=== PATIENT | male | born 1970 | race Caucasian/White ===

== ENCOUNTER 2017-04-20 11:44 | Inpatient (IN) | payer BC, OTHER ==
[~2017-04-20] VITALS: Ht 177.8 cm; Wt 70.3 kg
[2017-04-20] MEDS ORDERED: SODIUM CHLORIDE 0.9% 1,000 ML IVB ONE (12:24)
[2017-04-20] MEDS ORDERED: DILTIAZEM 125mg/125ml BAG KIT 100 ML IV ONE (12:24)
[2017-04-20] MEDS ORDERED: ASPirin 81 mg TAB PO ONE (12:30)
[2017-04-20] MEDS ORDERED: DILTIAZEM HCL 25 MG/5 ML VIAL IV ONE (12:30)
[2017-04-20 13:05] LABS: Basophils # (auto) 0 uL; Basophils % (auto) 0.3 % (0.0-2.0); Eosinophils # (auto) 0 uL; Eosinophils % (auto) 0.4 % (0.0-7.0); Hematocrit 48.2 % (41.0-53.0); Hemoglobin 16.2 g/dL (13.5-17.5); Lymphocytes # (auto) 0.7 uL; Lymphocytes % (auto) 6.4 % (10.0-50.0); Mean Corpuscular Hemoglobin 31.9 pg (28.0-32.0); Mean Corpuscular Hgb Conc. 33.6 g/dL (32.0-36.0); Mean Corpuscular Volume 95.1 fL (80.0-100.0); Monocytes # (auto) 0.4 uL; Monocytes % (auto) 3.8 % (0.0-12.0); Neutrophils # (auto) 9.1 uL; Neutrophils % (auto) 89.1 % (37.0-80.0); Nucleated Red Blood Cells % 0.1 %; Platelet Count (auto) 218 10^3/uL (140-450); Red Blood Cells 5.07 10^6/uL (4.5-5.90); Red Cell Distribution Width 13.2 % (11.8-14.3); White Blood Cell 10.3 10^3/uL (4.4-10.8)
[2017-04-20 13:23] LABS: Albumin 3.9 g/dL (3.4-5.0); Anion Gap 8 (5-15); Blood Urea Nitrogen 14 mg/dL (7-18); Calcium 8.7 mg/dL (8.5-10.1); Carbon Dioxide 23 mmol/L (21-32); Chloride 107 mmol/L (98-107); Glucose 101 mg/dL (74-106); Magnesium 2.2 mg/dL (1.6-2.6); Potassium 3.8 mmol/L (3.5-5.1); Sodium 138 mmol/L (136-145)
[2017-04-20 13:25] LABS: Alanine Aminotransferase 25 U/L (16-61); Aspartate Aminotransferase 15 U/L (15-37); BUN/Creatinine Ratio 14.4; GFR African American 106 mL/min; GFR Non-African American 88 mL/min
[2017-04-20 13:30] LABS: Alkaline Phosphatase 76 U/L (45-117); Bilirubin, Total 0.8 mg/dL (0.2-1.0); Total Protein 7.3 g/dL (6.4-8.2)
[2017-04-20] MEDS ORDERED: AMIODARONE HCL 150 MG in D5W 5% 100 ML IV ONE (14:00)
[2017-04-20] MEDS ORDERED: DIGOXIN (250MCG/ML) 2 ML AMPULE IV ONE (14:00)
[2017-04-20] MEDS ORDERED: ENOXAPARIN SOD 80 MG/0.8ML SYRINGE SC ONE (14:00)
[2017-04-20] MEDS ORDERED: AMIODARONE HCL 900 MG in DEXTROSE 500 ML IV SCH (14:08)
[2017-04-20] MEDS ORDERED: PROMETHAZINE HCL 25 MG/ML 1ML IV PRN (14:30)
[2017-04-20] MEDS ORDERED: MORPHINE SULFATE 4 MG/ML SYR/VIAL IV PRN ×2 (14:30)
[2017-04-20] MEDS ORDERED: ACETAMINOPHEN 500 MG TAB PO PRN (14:30)
[2017-04-20] MEDS ORDERED: TEMAZEPAM 15 MG CAP PO PRN (14:30)
[2017-04-20] MEDS ORDERED: LORazepam 0.5 MG TAB PO PRN (14:30)
[2017-04-20] MEDS ORDERED: HYDROcodone-ACET 5/325MG TAB PO PRN (14:30)
[2017-04-20] MEDS ORDERED: LACTULOSE 20Gm/30ML SOLN PO PRN (14:30)
[2017-04-20] MEDS ORDERED: NITROGLYCERIN 0.4 MG SL TAB SL PRN (14:30)
[2017-04-20 14:59] LABS: INR 0.98 (0.9-1.15); Partial Thromboplastin Time 25.5 sec (22.64-33.71); Prothrombin Time 10.7 sec (9.37-12.3)
[2017-04-20 15:00] LABS: Alcohol, Urine < 3.0 mg/dL (0-5); Amphetamine Screen, Urine NEGATIVE (NEGATIVE); Barbiturate Scree,Urine NEGATIVE (NEGATIVE); Benzodiazephine Screen, Urine NEGATIVE (NEGATIVE); Cannabinoid Screen, Urine POSITIVE (NEGATIVE); Cocaine Screen, Urine NEGATIVE (NEGATIVE); Opiate Scree,Urine NEGATIVE (NEGATIVE); Phencyclidine Screen, Urine NEGATIVE (NEGATIVE)
[2017-04-20 15:01] LABS: Urine Bacteria NONE SEEN /hpf (None Seen); Urine Blood Negative /uL (Negative); Urine WBC 1 /hpf (0 - 3)
[2017-04-20] MEDS: ENOXAPARIN SOD 80 MG/0.8ML SYRINGE SC SCH (22:31)
[2017-04-21 06:51] LABS: Cholesterol 146 mg/dL (< 200); HDL Cholesterol 60 mg/dL (40-59); LDL Cholesterol 83 mg/dL (< 100); Triglycerides 78 mg/dL (< 150)
[2017-04-21] MEDS: PANTOPRAZOLE 40 MG TAB PO SCH (10:47)
[2017-04-21] MEDS: ENOXAPARIN SOD 80 MG/0.8ML SYRINGE SC SCH ×2 (10:47→22:15)
[2017-04-21] MEDS: ASPirin 81 mg TAB PO SCH (10:47)
[2017-04-21] MEDS ORDERED: DILTIAZEM 125mg/125ml BAG KIT 125 ML IV SCH (13:30)
[2017-04-21] MEDS ORDERED: DILTIAZEM HCL 25 MG/5 ML VIAL IV ONE (15:45)
[2017-04-21] MEDS ORDERED: ALPRAZolam 0.25 MG TAB PO ONE (16:00)
[2017-04-22] MEDS: ENOXAPARIN SOD 80 MG/0.8ML SYRINGE SC SCH (09:35)
[2017-04-22] MEDS: PANTOPRAZOLE 40 MG TAB PO SCH (09:35)
[2017-04-22] MEDS: ASPirin 81 mg TAB PO SCH (09:35)
[2017-04-22 10:23] VITALS: BP 107/58
[2017-04-22 12:42] VITALS: BP 113/57
== END 2017-04-22 13:09 | disposition home or self-care (01) | DRG 310 ==
LOC: ER 11:44 → EDBD 11:44 → OVERFLOW 11:45
PROVIDERS: ADMIT Internal Medicine; ATTEND Internal Medicine
DX: I48.91 Unspecified atrial fibrillation (principal); F10.20 Alcohol dependence, uncomplicated; F17.210 Nicotine dependence, cigarettes, uncomplicated; K59.00 Constipation, unspecified; F41.9 Anxiety disorder, unspecified; G47.00 Insomnia, unspecified; T36.1X5A Adverse effect of cephalosporins and other beta-lactam antibiotics, initial encounter; R78.89 Finding of other specified substances, not normally found in blood; I51.89 Other ill-defined heart diseases; Z80.0 Family history of malignant neoplasm of digestive organs; Z80.8 Family history of malignant neoplasm of other organs or systems; Z88.0 Allergy status to penicillin; Z88.1 Allergy status to other antibiotic agents; Z88.8 Allergy status to other drugs, medicaments and biological substances; Y92.89 Other specified places as the place of occurrence of the external cause
CPT/HCPCS: 36415; 71045; 80053; 80061; 80307; 81001; 82550; 83735; 83880; 84443; 84484; 85025; 85379; 85610; 85652; 85730; 86141; 93005; 93306; 94761; 96361; 96365; 96375; 99291; G0378; J7060